=== PATIENT | male | born 1985 | race Caucasian/White ===

== ENCOUNTER 2021-01-11 02:27 | Emergency (ER) | payer MEDICAID ==
[~2021-01-11] VITALS: Ht 180.3 cm; Wt 72.6 kg
--- NOTE | 2021-01-11 02:45 | NUR ---
PT AMBULATED TO ER W/ C/O BACK PAIN, STATED HE FELL OF A 5 FOOT WALL 2 DAYS AGO, TOOK AN UNKNOWN PAIN MEDICATION FROM FRIEND 3 HRS [employer]IOR [employer]EL[employer] AND INEFFECTIVE. NO SOB OR LABORED BREATHING, AFEBRILE.
--- NOTE | 2021-01-11 02:47 | NUR ---
DR. FITZGERALD AT BEDSIDE, MSE IN PROGRESS.
[2021-01-11] MEDS ORDERED: CLINDAMYCIN HCL 150 MG CAPSULE PO ONE (03:00)
[2021-01-11] MEDS ORDERED: CLINDAMYCIN HCL 150 MG CAPSULE ONE (03:08)
--- NOTE | 2021-01-11 03:10 | NUR ---
XRAY AT BEDSIDE.
[2021-01-11] MEDS ORDERED: IBUPROFEN 800 MG TABLET PO ONE (03:15)
[2021-01-11] MEDS ORDERED: DEXAMETHASONE 4 MG TABLET PO ONE (03:15)
[2021-01-11] MEDS ORDERED: IBUPROFEN 800 MG TABLET ONE (03:20)
[2021-01-11] MEDS ORDERED: DEXAMETHASONE 4 MG TABLET ONE (03:20)
[2021-01-11] MEDS ORDERED: IBUP-1957 PO (04:10)
[2021-01-11] MEDS ORDERED: CLIN300C12 PO (04:10)
[2021-01-11 04:20] VITALS: BP 122/70
--- NOTE | 2021-01-11 04:20 | NUR ---
Patient discharged to home in stable condition. Denies any pain/discomfort upon discharge. Written and verbal after care instructions given. Patient verbalizes understanding of instructions. Stressed follow up or return to ER for worsening s/s. Steady gait.
== END 2021-01-11 04:21 | disposition home or self-care (01) ==
LOC: ER 02:42
DX: S32.2XXA Fracture of coccyx, initial encounter for closed fracture (principal); W17.89XA Other fall from one level to another, initial encounter; Y92.89 Other specified places as the place of occurrence of the external cause; Z59.00 Homelessness unspecified; J02.9 Acute pharyngitis, unspecified; Z20.822 Contact with and (suspected) exposure to COVID-19; K05.10 Chronic gingivitis, plaque induced; K04.01 Reversible pulpitis; F17.290 Nicotine dependence, other tobacco product, uncomplicated
CPT/HCPCS: 72100; 72170; 72220; 86403; 87070; 87426; 99284; 99406; J8540; A4663